=== PATIENT | male | born 1965 | race Caucasian/White ===

== ENCOUNTER 2017-01-23 18:14 | Inpatient (IN) | payer OTHER ==
[2017-01-23] MEDS ORDERED: ONDANSETRON 4 MG/2 ML VIAL IVP PRN (21:04)
[2017-01-23] MEDS ORDERED: ONDANSETRON DISINTEGRATING 4 MG TAB PO PRN (21:04)
[2017-01-23] MEDS: ENOXAPARIN 100 MG/ML SYR SC SCH (21:27)
[2017-01-23] MEDS ORDERED: KETOROLAC 30 MG/1 ML SDV IVP ONE (21:30)
[2017-01-23 21:43] LABS: % IMMATURE GRANULYOCYTES 0.5 % (0.0-1.1); ABSOLUTE IMMATURE GRANULOCYTES 0.07 10^3/uL (0.00-0.10); ADD DIFF? NO; ADD MORPH? NO; ADD SCAN? NO; ATYPICAL LYMPHOCYTE FLAG 0 (0-99); FRAGMENT RBC FLAG 0 (0-99); HEMATOCRIT 36.5 % (40.0-51.0); HEMOGLOBIN 12.5 g/dL (13.7-17.5); LEFT SHIFT FLG 20 (0-99); LIPEMIA HEMOLYSIS FLAG 90 (0-99); MEAN CELL HEMOGLOBIN 29.6 pg (27.9-34.1); MEAN CELL HEMOGLOBIN CONCENTR. 34.2 g/dL (32.4-36.7); MEAN CELL VOLUME 86.3 fL (81.5-99.8); MEAN PLATELET VOLUME 8.6 fL (8.7-11.7); PLATELET CLUMPS FLAG 0 (0-99); PLATELET COUNT 256 10^3/uL (150-400); RED BLOOD CELL COUNT 4.23 10^6/uL (4.40-6.38); RED CELL DISTRIBUTION WIDTH 13.1 % (11.5-15.2)
[2017-01-23 21:48] LABS: INR 1.22 (0.83-1.16); PROTIME(PATIENT) 15.4 SEC (12.0-15.0)
[2017-01-23 21:49] LABS: APTT 32.4 SEC (23.0-38.0)
[2017-01-23 21:59] LABS: ALANINE AMINOTRANSFERASE 68 IU/L (21-72); ALBUMIN 3.7 g/dL (3.5-5.0); ALKALINE PHOSPHATASE 78 IU/L (38-126); ANION GAP 11 mEq/L (8-16); ASPARTATE AMINOTRANSFERASE 44 IU/L (17-59); BILIRUBIN,TOTAL 0.6 mg/dL (0.1-1.4); CALCIUM 8.4 mg/dL (8.5-10.4); CARBON DIOXIDE 24 mEq/l (22-31); CHLORIDE 104 mEq/L (97-110); GLOMERULAR FILTRATION RATE > 60; GLUCOSE 100 mg/dL (70-100); POTASSIUM 3.8 mEq/L (3.5-5.2); SODIUM 139 mEq/L (134-144); TOTAL PROTEIN 6.6 g/dL (6.3-8.2)
--- NOTE | 2017-01-23 22:02 | GHP ---
[f rep st] HISTORY AND PHYSICAL DATE OF ADMISSION: 01/23/2017 CHIEF COMPLAINT: Pulmonary embolism. HISTORY OF PRESENT ILLNESS: A 51-year-old male, who was transferred from [facility]. About 10 days ago, he developed upper respiratory tract infection. About 4 days ago, he developed pleuritic-type chest pain. He was diagnosed with possible pneumonia a few days ago and started on antibiotics. T he pain continued. He had continued chest pain in the left side and then moved to the right side wh ich is pleuritic and quite severe and sharp. He presented to the emergency department at [facility] today, and the CT scan showed pulmonary embolism. He is not having any particular shortness of anahi ath. He did state that he had some left leg pain a few days ago. He has never had blood clots befo re. No recent bed rest or travel. No family history of blood clots. REVIEW OF SYSTEMS: A 10-point review of systems was obtained and was negative. PAST MEDICAL HISTORY: 1. 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 2. Aortic valve replacement with bovine valve. His project engineering director is Dr. Bueno. 3. 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 4. Hypothyroidism. MEDICATIONS: Include aspirin and levothyroxine. SOCIAL HISTORY: No smoking or alcohol. 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 FAMILY HISTORY: No history of blood clots. PHYSICAL EXAM: VITAL SIGNS: Afebrile, blood pressure is 124/65, heart rate 78, oxygen saturation 9 4% on 3 L. GENERAL: Patient is well developed, though in some distress secondary to pleuritic pain . HEENT: Nonicteric sclerae. Extraocular movements intact. Moist mucous membranes. NECK: Suppl e. No thyromegaly. LUNGS: Good effort. Clear to auscultation bilaterally. CARDIOVASCULAR: Regu lar rate and rhythm. There is a 2/6 systolic murmur heard best at the right upper sternal border. ABDOMEN: Positive bowel sounds. Soft, nontender, nondistended. No hepatosplenomegaly. EXTREMITIE S: No clubbing, cyanosis, or edema. SKIN: Without rash, warm and intact. NEURO: Alert and orien razia x3. Moving all 4 extremities equally. PSYCH: Normal mood and affect. LABS: The hospital labs are pending, but labs today showed a white count of 11. Creatinine 0.9. C T scan results showed multiple pulmonary emboli in the right middle lobe and right lower, and left l ower lobes. There was a very small right pleural effusion as well. ASSESSMENT: This is a 51-year-old male presenting with acute pulmonary embolism. PLAN: 1. Pulmonary embolism. The patient was given a dose of Lovenox in the morning. We will continue L ovenox here. We will do at least a few days of this, and then decide if he could be transitioned ov er to the newer oral anticoagulants versus Coumadin. He is having significant amounts of pleuritic chest pain currently. It is a little bit unusual that it comes in waves and rather than be continuo us, but is definitely pleuritic and quite sharp, and consistent with pleurisy from a pulmonary embol ism. We will give a dose of Toradol now, and then give small doses of Toradol as needed along with narcotics. We will also check lower extremity Doppler. The patient does have very mild hypoxia. N o hypotension nor tachycardia. 2. Hypothyroidism, due to tumor removal. Continue levothyroxine. 3. History of a bovine aortic valve replacement. 4. Admission: Patient will be admitted under full admission status. Case discussed with physician s at [facility]. Records from [facility] were reviewed and summarized in the HPI. /[id number]/MODL
[2017-01-23 22:10] LABS: TROPONIN I < 0.012 ng/mL (0-0.034)
[2017-01-23] MEDS: oxyCODONE IR 5 MG TAB PO PRN (22:12)
[2017-01-23] MEDS: ACETAMINOPHEN 325 MG TAB PO PRN (22:13)
--- NOTE | 2017-01-23 22:30 | CPEKG ---
Heart Rate: 68 RR Interval: 882 P-R Interval: 164 QRSD Interval: 106 QT Interval: 412 QTC Interval: 439 P [employer]: 30 QRS [employer]: -3 T Wave [employer]: 58 EKG Severity - ABNORMAL ECG - EKG Impression: SINUS RHYTHM Electronically Signed By: Michael Cisse 24-Jan-2017 06:52:03
[2017-01-24] MEDS: HYDROmorphONE/DILAUDID 1 MG/ML SYR IVP PRN ×6 (01:10→19:31)
[2017-01-24] MEDS: ACETAMINOPHEN 325 MG TAB PO PRN ×2 (02:03→06:06)
[2017-01-24] MEDS: oxyCODONE IR 5 MG TAB PO PRN ×5 (02:03→22:13)
[2017-01-24] MEDS: KETOROLAC 30 MG/1 ML SDV IVP PRN ×4 (04:47→22:13)
[2017-01-24] MEDS: ENOXAPARIN 100 MG/ML SYR SC SCH ×2 (08:25→22:12)
[2017-01-24] MEDS: LEVOTHYROXINE 50 MCG TAB PO SCH (08:53)
[2017-01-24] MEDS: ASPIRIN EC 81 MG TAB PO SCH (08:53)
[2017-01-24] MEDS: MULTIVITAMINS 1 EACH TAB PO SCH (08:53)
[2017-01-24] MEDS: LEVOTHYROXINE 200 MCG TAB PO SCH (08:53)
[2017-01-24] MEDS ORDERED: NALOXONE HCL 0.4 MG/ML INJ IVP PRN (12:09)
--- NOTE | 2017-01-24 12:55 | GCON ---
[f rep st] CONSULTATION PULMONARY CRITICAL CARE CONSULTATION DATE OF CONSULTATION: 01/24/2017 REASON FOR CONSULTATION: Pulmonary embolism, pleurisy. HISTORY OF PRESENT ILLNESS: Patient is a 51-year-old gentleman from [place]. He was transferred to [facility] yesterday with acute pulmonary embolic disease and associated pleuris y. His recent history is remarkable for an apparent upper respiratory tract infection approximately 10 days ago. He had chest pain with deep inspiration at that time. Apparently there were concerns regarding a left lower lobe pneumonia, and the patient was treated with Zithromax; however, symptom s did not improve. He returned to the [facility] yesterday. D-dimer was elevated. CT angiogram showed evidence of bilateral moderate volume pulmonary embolic disease. He was not hyp otensive, not significantly hypoxemic nor short of breath. His main complaint has been that of ches t pain. He was transferred to [facility]. He has been placed on full-dose Lovenox and pain medications. He continues to have right anterior chest pain, especially with certain positions and breathing. The pain tends to wax and wane in somewhat of a periodic fashion. He is on 2 L of oxyge n. Blood pressures are normal. He has not yet been started on oral anticoagulation. PAST MEDICAL HISTORY: Remarkable for a history of aortic valve replacement and aortic aneurysm rese ction in 2014. There is a history of acromegaly with trans-sphenoidal resection in 2016, a Hurthle cell thyroid adenoma previously resected, hypothyroidism on replacement, appendectomy, shoulder surg gladis, and vasectomy. MEDICATIONS: On admission prior to his recent presentations included only levothyroxine and aspirin . He has also been on a cough suppressant. SOCIAL HISTORY: The patient is , works in [place] in their housing [employer]. 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 He does not work at a computer for prolonged periods of time. There is no history of recent tr jessica, lower extremity injury, sedentary lifestyle, etc. He is a never smoker. He drinks alcohol in frequently. He is . FAMILY HISTORY: Negative for thromboembolic disease by report. Other problems include rheumatoid a rthritis and Karin syndrome, hyperlipidemia, hypertension. REVIEW OF SYSTEMS: Unremarkable for coronary artery disease, underlying lung disease, asthma, previ ous thromboembolic disease, kidney disease, etc. He has had no lower extremity or upper extremity e daly or swelling. He may have had some left calf tightness yesterday? Ten point review of systemsi s otherwise negative. PHYSICAL EXAMINATION: GENERAL: Reveals a pleasant gentleman who is resting comfortably in bed at t imes, has pleuritic pain on the right side, and clutches his chest intermittently at times. VITAL S IGNS: Blood pressure is 125/87, heart rate 75 with sinus rhythm on the monitor. Respiratory rate i s approximately 18. On 2 L, saturations are 99% to 100%. He is afebrile. HEENT: Unremarkable for lymphadenopathy or thyromegaly. There is no obvious jugular venous distention. PULMONARY: The ch est reveals an obvious rub on the right side. Excursions are limited secondary to his pain. He has some rales at the bases, left greater than right with a possible soft rub at the posterior left bas e which I cannot exclude. HEART: Regular in rate and rhythm. There is a soft systolic murmur. Th e aortic valve sounds fine. There are no gallops. P2 does not appear to be elevated. ABDOMEN: So ft, nontender. Bowel sounds present. EXTREMITIES: Without edema or cords. NEUROLOGIC: Intact. DATABASE: CT scan of the chest done in [place] shows bilateral pulmonary embolic disease with so me lobar defects in the right middle lobe, right lower lobe with some segmental defects in other lob es. There is no saddle embolus, no central pulmonary embolic lesions. Hypercoagulability panel reportedly was drawn in [place], but only protein C and S activities are listed. Laboratory here includes a white blood cell count of 14,000 on admission, hematocrit 36, platelets o f 256,000. PT was 15 with an INR 1.22 on admission, PTT 32. Chemistries are all within normal limi ts as is troponin. Bilateral lower extremity venous Doppler ultrasound done at [facility] negative for evidence of deep venous thrombosis. ASSESSMENT: 1. Pulmonary embolism. The patient has moderate volume pulmonary embolic disease not associated wi th hypotension or significant hypoxemia. He is being treated with Lovenox. Coumadin will be initia razia. He has been on Coumadin in the past associated with his valvular heart surgery apparently for a short period of time. Lower extremity venous Doppler ultrasound done here was negative for an obv ious source. Presumably, however, his clot came from a lower extremity thrombosis which has broken off entirely? 2. Pleurisy. Patient has significant right-sided pleurisy associated with an obvious pleural rub. This is waxing and waning but is quite uncomfortable and distressing to both the patient and his wi fe. He is on Dilaudid and Toradol at this point in time. DRYWALL FINISHING FOREMAN may be useful. There may be a compon ent of chest wall spasm. To this end, if present, Valium could be of benefit. 3. History of aortic valve replacement and aortic aneurysm repair. No issues are identified. 4. History of other past medical problems as outlined in HPI. PLAN AND RECOMMENDATIONS: The patient will be continued on full dose Lovenox. Coumadin will be add ed to his regimen, 7.5 mg given today. PT and INR will be followed. Dilaudid DRYWALL FINISHING FOREMAN will be added to his pain control regimen. P.r.n. Valium will to be tried for possible spasm. Further hypercoagulab ility values such as a factor V Leiden can be drawn. All of the above was discussed at length with the patient and his . Pathophysiology was discuss ed, risk factors for blood clots, anticipated time course of hospitalization, expected time course o f chest pain, hypercoagulability issues, mechanisms of chest pain in pulmonary embolic disease, pleu risy, etc. The patient and his are unhappy with the care at [facility] and are requesting transfer to the [facility]. The patient contact center representative will discuss issues with the patient and his and transfer arranged per their request if possible. /[id number]/MODL
[2017-01-24] MEDS: HYDROmorphONE/DILAUDID 6 MG/30 ML PCA IV PRN (14:03)
[2017-01-24] MEDS: DIAZEPAM 5 MG TAB PO PRN ×3 (15:22→22:14)
[2017-01-24] MEDS ORDERED: WARFARIN SODIUM 7.5 MG TAB PO ONE (16:00)
--- NOTE | 2017-01-24 16:11 | HOSPPROG ---
Hospitalist Progress Note Assessment/Plan: 51 yo M from [place] seen for chest pain and found to have acute bilateral PE # acute bilateral PE: moderate volume without any hemodynamic compromise but continued severe pain. No DVT on US. Has associated small right pleural effusion and likely associated infarct. Will get echo in the am and a repeat trop. ECG without ischemic changes or e/o right heart strain. Monitoring on tele. Treating with lovenox and coumadin. # chest pain: pain is severe and comes in waves that he describes as similar to contractions or spasms. Not well controlled on current medications so have added dilaudid display manager as well as valium prn. Do not suspect a secondary process causing his pain and reviewed that with him at length, but will add ESR and trop. # acute hypoxic respiratory failure: requiring 3L to maintain o2 sats in the mid to high 90s, will continue to titrate off as we are able. As above, will get cxr in am. # vhd: s/p aortic valve replacement, followed by [facility], echo in am # aortic aneurysm: s/p surgical repair, no issues noted on CTA performed at [facility] as above # jennifer: s/p septoplasty/inferior turbinate reduction # acromegaly: s/p transsphenoidal resection of pituitary adenoma # hypothyroid: continue lt4 # dispo: IP status, high risk requiring IV opiates Patient new to my care. Old records reviewed and summarized as above. Care plan reviewed with Dr. Borrero and multidisciplinary care team. Further hx obtained from and family present at bedside. Subjective: no significant overnight events, patient notes continued severe pain that comes in waves and not only associated with deep breath but at times positional, no n/v, eating well, not sob Objective: Vital Signs Temp Pulse Resp BP Pulse Ox 37.0 C 75 16 133/72 H 92 01/24/17 08:00 01/24/17 12:00 01/24/17 12:00 01/24/17 12:00 01/24/17 12:00 Laboratory Results 01/23/17 21:15 01/23/17 21:15 01/23/17 01/24/17 01/25/17 05:59 05:59 05:59 Intake Total 350 Balance 350 PT 15.4 SEC (12.0-15.0) H 01/23/17 21:15 INR 1.22 (0.83-1.16) H 01/23/17 21:15 awake alert moderate distress anicteric op clear rrr no mrg cta b, dec bs at bases soft nt nd no cce warm dry well perfused oriented appropriate - Time Spent With Patient Time Spent with Patient: greater than 35 minutes Time Spent with Patient: Greater than 35 minutes spent on this patients care, greater than 50% of time spent counseling, educating, and coordinating care regarding the above mentioned plan. ICD10 Worksheet Patient Problems: Problems Problem Status Onset Sleep apnea Acute
[2017-01-24 16:26] LABS: HEMATOCRIT 39.3 % (40.0-51.0)
[2017-01-24] MEDS ORDERED: WARFARIN SODIUM 5 MG TAB PO ONE (16:30)
[2017-01-25] MEDS ORDERED: LEVOTHYROXINE 200 MCG TAB PO SCH (05:00)
[2017-01-25] MEDS ORDERED: LEVOTHYROXINE 50 MCG TAB PO SCH (05:00)
[2017-01-25] MEDS: KETOROLAC 30 MG/1 ML SDV IVP PRN ×3 (05:05→20:28)
[2017-01-25] MEDS: LEVOTHYROXINE 200 MCG TAB PO SCH (05:05)
[2017-01-25] MEDS: LEVOTHYROXINE 50 MCG TAB PO SCH (05:05)
[2017-01-25] MEDS: DIAZEPAM 5 MG TAB PO PRN ×3 (05:06→21:54)
[2017-01-25] MEDS: oxyCODONE IR 5 MG TAB PO PRN ×2 (05:06→14:01)
[2017-01-25 05:35] LABS: % IMMATURE GRANULYOCYTES 1.6 % (0.0-1.1); ABSOLUTE IMMATURE GRANULOCYTES 0.16 10^3/uL (0.00-0.10); ADD DIFF? NO; ADD MORPH? NO; ADD SCAN? NO; ATYPICAL LYMPHOCYTE FLAG 40 (0-99); FRAGMENT RBC FLAG 0 (0-99); HEMATOCRIT 35.4 % (40.0-51.0); HEMOGLOBIN 11.6 g/dL (13.7-17.5); LEFT SHIFT FLG 10 (0-99); LIPEMIA HEMOLYSIS FLAG 80 (0-99); MEAN CELL HEMOGLOBIN 29.4 pg (27.9-34.1); MEAN CELL HEMOGLOBIN CONCENTR. 32.8 g/dL (32.4-36.7); MEAN CELL VOLUME 89.8 fL (81.5-99.8); MEAN PLATELET VOLUME 8.7 fL (8.7-11.7); PLATELET CLUMPS FLAG 0 (0-99); PLATELET COUNT 257 10^3/uL (150-400); RED BLOOD CELL COUNT 3.94 10^6/uL (4.40-6.38); RED CELL DISTRIBUTION WIDTH 13.2 % (11.5-15.2)
[2017-01-25 06:25] LABS: INR 1.16 (0.83-1.16); PROTIME(PATIENT) 14.8 SEC (12.0-15.0)
[2017-01-25] MEDS: HYDROmorphONE/DILAUDID 6 MG/30 ML PCA IV PRN (09:49)
[2017-01-25] MEDS: ASPIRIN EC 81 MG TAB PO SCH (09:53)
[2017-01-25] MEDS: MULTIVITAMINS 1 EACH TAB PO SCH (09:53)
[2017-01-25] MEDS: ENOXAPARIN 100 MG/ML SYR SC SCH ×2 (09:54→20:28)
--- NOTE | 2017-01-25 10:39 | ECHO ---
[id number] + + [address] : : [place] [address] : : [phone] + + Adult Echocardiographic Report + -------+ :Name: ALANIS MAYER Gallo Date: 01/25/2017 08:44 AM : : Hospital Admission Number: [id number] Locati on: 221: :: 1965 Gender: Male Height: 77 in : :Age: 51 yrs Race: WH Weight: 211 lb : :Reason For Study: PE/chest pain : : BSA: 2.3 meter s2 : :History: AVR with AO root graft : + -------+ MMode/2D Measurements \T\ Calculations IVSd: 0.84 cm LVIDd: 5.0 cm FS: 33.4 % Ao root diam: 3.5 cm LVPWd: 1.1 cm LVIDs: 3.3 cm EDV(Teich): 118.8 ml LA dimension: 4.3 cm ESV(Teich): 45.4 ml EF(Teich): 61.8 % Normal Measurement Values: + + :LVIDd (3.5-5.7cm) IVSd (0.6-1.1cm) LVPWd (0.6-1.1cm) Aortic Root (2.0-3.7cm)Left Atrium (1.5-4.0cm): :LV Vol(d) (76-115ml) LV Vol(s) (29-48ml) Ejec Fraction (50-65%)PV Camron (0.6- 1.2m/s) TV Camron (0.4-1.0m/s) : :MV E Camron (0.8-1.0m/s)MV A Camron (0.3-1.0m/s)LVOT Camron (0.7-1.2m/s) Asc Ao Camron ( 0.9-1.8m/s) : + + Doppler Measurements \T\ Calculations MV E max camron: 88.8 cm/sec Ao mean P.5 mmHg TR max camron: 262.0 cm/sec MV A max camron: 59.2 cm/sec Ao V2 mean: 145.6 cm/sec TR max P.5 mmHg MV E/A: 1.5 Ao V2 VTI: 41.5 cm RAP systole: 10.0 mmHg RVSP(TR): 37.5 mmHg Left Ventricle The left ventricle is normal in size. There is normal left ventricular wall thickness. EF estimate is 55-60%. The left ventricular ejection fraction is calculated at 61.8 %. There is Doppler evidence for diastolic dysfunction. Septal motion is consistent with post-operative state. Right Ventricle The right ventricle is normal in size and function. Atria The left atrium is mildly dilated. The right atrium is moderate to severely dilated. Mitral Valve The mitral valve is normal in structure and function. There is no evidence of mitral valve prolapse. There is mild mitral regurgitation. Tricuspid Valve Normal tricuspid valve. There is moderate tricuspid regurgitation. Right ventricular systolic pressure is normal. Aortic Valve There is a bioprosthetic aortic valve. AV max PG is 16mmHG. AV mean PG is 9mmHG. Pulmonic Valve The pulmonic valve is not well visualized. There is no pulmonic valvular regurgitation. Great Vessels The aortic root is normal size. Pericardium/Pleural There is no pericardial effusion. Conclusion A complete two-dimensional transthoracic echocardiogram was performed (2D, M-mode, Doppler and color flow Doppler). (1) Left ventricular systolic ejection fraction was normal (55-60%) - septal wall motion consistent with post operative state (2) No left ventricular hypertrophy (3) Diastolic dysfunction was noted (4) Normal right ventricular size and function (5) Modearte to severe right atrial dilation with mild left atrial dilation (6) Mild mitral regurgitation (7) Bioprosthetic aortic valve without appreciable insufficiency or sclerosis - mean gradient was estimated to be 9 mm Hg (8) Moderate tricuspid regurgitation - RVSP was 38 mm Hg (9) Poor visualization of the pulmonic valve (10) No comparison echocardiograms Final Reading Physician: Dany Vazquez signed on 01/25/2017 10:38 AM Ordering Physician: Claire Boyle Performed By: Toshia Choi, ENRIQUE
[2017-01-25] MEDS ORDERED: chlorproMAZINE HCL 25 MG TAB PO ONE (11:18)
--- NOTE | 2017-01-25 15:17 | HOSPPROG ---
Hospitalist Progress Note Assessment/Plan: 51 yo M from [place] seen for chest pain and found to have acute bilateral PE # acute bilateral PE: moderate volume without any hemodynamic compromise but continued severe pain. No DVT on US. Has associated small right pleural effusion and likely associated infarct. Echo w/o pericardial effusion or e/o right heart strain. Continue lovenox/warfarin. Pain control as next. # chest pain: pain is severe and continues to occur in a manner similar to spasm. Still poorly controlled despite dilaudid managed care analyst, toradol and valium. Query if due to diaphragmatic irritation and given similar spasm type phenomenon as hiccups will try a one time dose of thorazine as well. Nothing else on CT or echo to suggest another process contributing. Trops negative, no ischemic changes on ecg or echo. # acute hypoxic respiratory failure: requiring 3L to maintain o2 sats in the mid to high 90s, will continue to titrate off as we are able. # vhd: s/p aortic valve replacement, followed by [facility], echo stable # aortic aneurysm: s/p surgical repair, no issues noted on CTA performed at [facility] as above # jennifer: s/p septoplasty/inferior turbinate reduction # acromegaly: s/p transsphenoidal resection of pituitary adenoma # hypothyroid: continue lt4 # dispo: IP status, high risk requiring IV opiates Reviewed care with Dr. Bueno who will be available peripherally if needed. Subjective: no significant overnight events, patient continues to have severe pain that is only moderately controlled on current meds Objective: Vital Signs Temp Pulse Resp BP Pulse Ox 36.4 C 76 14 124/69 H 96 01/25/17 11:31 01/25/17 11:31 01/25/17 11:31 01/25/17 11:31 01/25/17 11:31 Laboratory Results 01/25/17 05:05 01/23/17 21:15 01/24/17 01/25/17 01/26/17 05:59 05:59 05:59 Intake Total 550 Balance 550 PT 14.8 SEC (12.0-15.0) 01/25/17 05:05 INR 1.16 (0.83-1.16) 01/25/17 05:05 awake alert moderate distress anicteric op clear rrr no mrg cta b, dec bs at bases soft nt nd no cce warm dry well perfused oriented appropriate - Time Spent With Patient Time Spent with Patient: greater than 35 minutes Time Spent with Patient: Greater than 35 minutes spent on this patients care, greater than 50% of time spent counseling, educating, and coordinating care regarding the above mentioned plan. ICD10 Worksheet Patient Problems: Problems Problem Status Onset Sleep apnea Acute
[2017-01-25] MEDS ORDERED: WARFARIN SODIUM 7.5 MG TAB PO ONE (16:00)
[2017-01-26] MEDS: KETOROLAC 30 MG/1 ML SDV IVP PRN ×2 (02:20→10:59)
[2017-01-26] MEDS: LEVOTHYROXINE 50 MCG TAB PO SCH (04:49)
[2017-01-26] MEDS: DIAZEPAM 5 MG TAB PO PRN ×3 (04:49→20:51)
[2017-01-26] MEDS: LEVOTHYROXINE 200 MCG TAB PO SCH (04:49)
[2017-01-26 05:52] LABS: INR 1.28 (0.83-1.16)
[2017-01-26] MEDS: LIDOCAINE 5% 1 EA PATCH TD SCH (09:31)
[2017-01-26] MEDS: ASPIRIN EC 81 MG TAB PO SCH (09:33)
[2017-01-26] MEDS: MULTIVITAMINS 1 EACH TAB PO SCH (09:33)
[2017-01-26] MEDS: ENOXAPARIN 100 MG/ML SYR SC SCH ×2 (09:34→20:50)
[2017-01-26] MEDS: HYDROmorphONE/DILAUDID 6 MG/30 ML PCA IV PRN (13:41)
[2017-01-26] MEDS ORDERED: MAGNESIUM HYDROXIDE 30 ML UDCUP PO PRN (14:20)
[2017-01-26] MEDS ORDERED: POLYETHYLENE GLYCOL 3350 17 GM PKT PO PRN (14:20)
[2017-01-26 14:50] LABS: INTERPRETATION See Comments
[2017-01-26] MEDS ORDERED: WARFARIN SODIUM 7.5 MG TAB PO ONE (16:00)
[2017-01-26] MEDS: HYDROmorphONE/DILAUDID 2 MG TAB PO PRN ×2 (16:43→20:51)
[2017-01-26] MEDS: NAPROXEN SODIUM 220 MG TAB PO PRN (16:43)
--- NOTE | 2017-01-26 16:52 | HOSPPROG ---
Hospitalist Progress Note Assessment/Plan: Assessment:51 yo M from [place] seen for chest pain and found to have acute bilateral PE Plan: # acute bilateral PE: Idiopathic, moderate volume without any hemodynamic compromise but continued severe pain secondary to pulmonary infarct - No DVT on US - Has associated small right pleural effusion and likely associated infarct - Echo w/o pericardial effusion or e/o right heart strain - Continue lovenox/warfarin - outpt INR will be via [facility] # acute pulmonary infarction: pain is severe and continues to occur in a manner similar to spasm, still poorly controlled despite dilaudid shipyard laborer, toradol and valium - attempt to cycle in PO equivalents of dilaudid, NSAID, gauge effect - cont to require CERTIFIED REGISTERED NURSE ANESTHETIST/IV toradol # acute hypoxic respiratory failure: evidenced by SpO2 88% w/ objective tachypnea (RR 22), symptomatic shortness of breath/labored breathing, requiring 4L to maintain o2 sats, 2/2 acute pulmonary embolism - cont pulse ox monitoring # vhd: s/p aortic valve replacement, followed by [facility], echo stable # aortic aneurysm: s/p surgical repair, no issues noted on CTA performed at [facility] as above # jennifer: s/p septoplasty/inferior turbinate reduction # acromegaly: s/p transsphenoidal resection of pituitary adenoma # hypothyroid: continue lt4 diet: regular ppx: high risk, on lovenox code: full dispo: ADD uncertain, requiring IV CERTIFIED REGISTERED NURSE ANESTHETIST for pain mgmt Subjective: counseled regarding pain management strategy including introducing oral pain medications, continuing IV pain medications, introducing bowel regimen , anticipated activity limitations Objective: Vital Signs Temp Pulse Resp BP Pulse Ox 35.7 C L 77 20 126/78 H 95 01/26/17 13:50 01/26/17 13:50 01/26/17 13:50 01/26/17 13:50 01/26/17 13:50 Laboratory Results 01/25/17 05:05 01/23/17 21:15 01/25/17 01/26/17 01/27/17 05:59 05:59 05:59 Intake Total 550 499 Balance 550 499 PT 16.0 SEC (12.0-15.0) H 01/26/17 04:42 INR 1.28 (0.83-1.16) H 01/26/17 04:42 - Time Spent With Patient Time Spent with Patient: greater than 35 minutes Time Spent with Patient: Greater than 35 minutes spent on this patients care, greater than 50% of time spent counseling, educating, and coordinating care regarding the above mentioned plan. - Physical Exam Constitutional: uncomfortable Cardiovascular: No tachycardia, No edema Respiratory: inspiratory crackles, other ( deep inspiration limited secondary to pain) Neurologic: AAOx3 Psychiatric: not encephalopathic, anxious, No agitated ICD10 Worksheet Patient Problems: Problems Problem Status Onset Sleep apnea Acute
[2017-01-26] MEDS: PATCH REMOVAL 1 EA PATCH TD SCH (20:54)
[2017-01-27] MEDS: NAPROXEN SODIUM 220 MG TAB PO PRN ×2 (01:56→18:12)
[2017-01-27] MEDS: HYDROmorphONE/DILAUDID 2 MG TAB PO PRN ×2 (01:56→16:14)
[2017-01-27] MEDS: KETOROLAC 30 MG/1 ML SDV IVP PRN ×3 (04:51→21:03)
[2017-01-27] MEDS: LEVOTHYROXINE 200 MCG TAB PO SCH (04:52)
[2017-01-27] MEDS: LEVOTHYROXINE 50 MCG TAB PO SCH (04:52)
[2017-01-27 05:18] LABS: HEMATOCRIT 34.5 % (40.0-51.0); HEMOGLOBIN 11.4 g/dL (13.7-17.5); MEAN CELL HEMOGLOBIN 28.9 pg (27.9-34.1); MEAN CELL VOLUME 87.3 fL (81.5-99.8); RED BLOOD CELL COUNT 3.95 10^6/uL (4.40-6.38); RED CELL DISTRIBUTION WIDTH 12.8 % (11.5-15.2)
[2017-01-27 05:24] LABS: INR 1.57 (0.83-1.16); PROTIME(PATIENT) 18.8 SEC (12.0-15.0)
[2017-01-27 05:32] LABS: ANION GAP 9 mEq/L (8-16); CALCIUM 8.3 mg/dL (8.5-10.4); CARBON DIOXIDE 26 mEq/l (22-31); CHLORIDE 105 mEq/L (97-110); CREATININE 0.7 mg/dL (0.7-1.3); GLOMERULAR FILTRATION RATE > 60; GLUCOSE 87 mg/dL (70-100); POTASSIUM 4.3 mEq/L (3.5-5.2); SODIUM 140 mEq/L (134-144)
[2017-01-27] MEDS: LIDOCAINE 5% 1 EA PATCH TD SCH (09:59)
[2017-01-27] MEDS: MULTIVITAMINS 1 EACH TAB PO SCH (10:00)
[2017-01-27] MEDS: ENOXAPARIN 100 MG/ML SYR SC SCH ×2 (10:00→20:58)
[2017-01-27] MEDS ORDERED: WARFARIN SODIUM 7.5 MG TAB PO ONE (16:00)
--- NOTE | 2017-01-27 16:18 | HOSPPROG ---
Hospitalist Progress Note Assessment/Plan: Assessment:51 yo M from [place] seen for chest pain and found to have acute bilateral PE Plan: # acute bilateral PE: idiopathic, moderate volume without any hemodynamic compromise but continued severe pain secondary to pulmonary infarct - No DVT on US - Has associated small right pleural effusion and likely associated infarct - Echo w/o pericardial effusion or e/o right heart strain - Continue lovenox/warfarin bridging - outpt INR will be via [facility] # acute pulmonary infarction: pain is severe and continues to occur in a manner similar to spasm (although I believe what the /patient are seeing is pectoralis muscle fasciculation 2/2 underlying pain/inflammation/nerve irritation), improvement in pain mgmt today w/ addition of oral Rx but becoming more somnolent - cont attempt to cycle in PO equivalents of dilaudid, NSAID, gauge effect - cont lidoderm patch - cont to require PRODUCT LEAD/IV toradol - add gabapentin 100mg 3xd as there is probably a neuropathic pain component underlying his neuromuscular jxn fasciculations - counseled extensively today regarding pain mgmt strategy, getting him on oral Rx, not perseverating on muscular fasciculations (as they are not causing pain, but are rather an indication of ongoing pain/inflam/etc), and the progressive improvement he will continue to experience - all questions by and patient seemed to be answered today # acute hypoxic respiratory failure: evidenced by SpO2 88% w/ objective tachypnea (RR 22), symptomatic shortness of breath/labored breathing, requiring 4L to maintain o2 sats, 2/2 acute pulmonary embolism - cont pulse ox monitoring - unclear whether he will require home o2 # vhd: s/p aortic valve replacement, followed by Dr. Bueno, echo stable # aortic aneurysm: s/p surgical repair, no issues noted on CTA performed at [facility] as above # jennifer: s/p septoplasty/inferior turbinate reduction # acromegaly: s/p transsphenoidal resection of pituitary adenoma # hypothyroid: continue lt4 diet: regular ppx: high risk, on lovenox code: full dispo: ADD uncertain, requiring IV PRODUCT LEAD for pain mgmt Subjective: Patient reports that his pain management has improved, he is attempting to utilize some of the oral pain medications, is experiencing more fatigued today, he has had a bowel movement Objective: Vital Signs Temp Pulse Resp BP Pulse Ox 37.7 C 76 30 H 159/62 H 94 01/27/17 16:00 01/27/17 16:00 01/27/17 16:00 01/27/17 16:00 01/27/17 16:00 Laboratory Results 01/27/17 04:42 01/27/17 04:42 01/26/17 01/27/17 01/28/17 05:59 05:59 05:59 Intake Total 499 150 Balance 499 150 PT 18.8 SEC (12.0-15.0) H 01/27/17 04:42 INR 1.57 (0.83-1.16) H 01/27/17 04:42 - Time Spent With Patient Time Spent with Patient: greater than 35 minutes Time Spent with Patient: Greater than 35 minutes spent on this patients care, greater than 50% of time spent counseling, educating, and coordinating care regarding the above mentioned plan. - Physical Exam Constitutional: no apparent distress, appears nourished, uncomfortable, No chronically ill appearing Respiratory: reduced air movement (Inspiration limited secondary to pain), inspiratory crackles (Bilateral bases and mid posterior 2nd), No expiratory wheeze, No bronchial breath sounds Neurologic: AAOx3 Psychiatric: interacting appropriately, not anxious, not encephalopathic, thought process linear ICD10 Worksheet Patient Problems: Problems Problem Status Onset Sleep apnea Acute
[2017-01-27] MEDS: ACETAMINOPHEN 325 MG TAB PO PRN (20:57)
[2017-01-27] MEDS: PATCH REMOVAL 1 EA PATCH TD SCH (21:00)
[2017-01-27] MEDS: DIAZEPAM 5 MG TAB PO PRN (21:02)
[2017-01-27] MEDS: GABAPENTIN 100 MG CAP PO SCH (21:03)
[2017-01-28] MEDS: HYDROmorphONE/DILAUDID 2 MG TAB PO PRN ×3 (02:04→19:51)
[2017-01-28] MEDS: NAPROXEN SODIUM 220 MG TAB PO PRN ×3 (02:04→19:51)
[2017-01-28 05:18] LABS: INR 2.03 (0.83-1.16); PROTIME(PATIENT) 23.1 SEC (12.0-15.0)
[2017-01-28] MEDS: LEVOTHYROXINE 50 MCG TAB PO SCH (06:11)
[2017-01-28] MEDS: LEVOTHYROXINE 200 MCG TAB PO SCH (06:13)
[2017-01-28] MEDS: DIAZEPAM 5 MG TAB PO PRN (06:23)
[2017-01-28] MEDS: ENOXAPARIN 100 MG/ML SYR SC SCH (09:10)
[2017-01-28] MEDS: GABAPENTIN 100 MG CAP PO SCH ×3 (09:11→19:51)
[2017-01-28] MEDS: ACETAMINOPHEN 325 MG TAB PO PRN ×2 (09:11→16:22)
[2017-01-28] MEDS: LIDOCAINE 5% 1 EA PATCH TD SCH (09:12)
[2017-01-28] MEDS: MULTIVITAMINS 1 EACH TAB PO SCH (09:12)
[2017-01-28] MEDS ORDERED: DIAZEPAM 5 MG TAB PO PRN (14:01)
--- NOTE | 2017-01-28 14:14 | HOSPPROG ---
Hospitalist Progress Note Assessment/Plan: Assessment:51 yo M from [place] seen for chest pain and found to have acute bilateral PE Plan: # acute bilateral PE: idiopathic, moderate volume without any hemodynamic compromise. No DVT on US - Has associated small right pleural effusion and likely associated infarct - Echo w/o pericardial effusion or e/o right heart strain - Continue lovenox/warfarin bridging, INR now therapeutic, has had 5 day overlap , will d/c lovenox tomorrow - outpt INR will be via [facility] - recommend outpt heme consult to discuss DOT of anticoagulation as this is an unprovoked PE. 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 Bueno, echo stable # aortic aneurysm: s/p surgical repair, no issues noted on CTA performed at [facility] as above # jennifer: s/p septoplasty/inferior turbinate reduction # acromegaly: s/p transsphenoidal resection of pituitary adenoma # hypothyroid: continue lt4 diet: regular ppx: high risk, on lovenox code: full dispo: likely tomorrow Subjective: PT is quite sedated, apathetic nature. Denies CP or SOB at rest. Still having some hemoptysis. No fevers/chills. He ambulated in the halls without O2, sats 86%. Objective: Vital Signs Temp Pulse Resp BP Pulse Ox 36.4 C 61 20 126/85 H 89 L 01/28/17 11:54 01/28/17 11:54 01/28/17 11:54 01/28/17 11:54 01/28/17 11:54 Laboratory Results 01/27/17 04:42 01/27/17 04:42 01/27/17 01/28/17 01/29/17 05:59 05:59 05:59 Intake Total 150 1605 Output Total 3 Balance 150 1602 PT 23.1 SEC (12.0-15.0) H 01/28/17 04:49 INR 2.03 (0.83-1.16) H 01/28/17 04:49 - Physical Exam Constitutional: no apparent distress Eyes: PERRL Ears, Nose, Mouth, Throat: moist mucous membranes Cardiovascular: regular rate and rhythym, systolic murmur Respiratory: no respiratory distress, other (dimished right base) Gastrointestinal: normoactive bowel sounds, soft, non-tender abdomen Skin: warm Musculoskeletal: full muscle strength Neurologic: AAOx3 Psychiatric: flat affect ICD10 Worksheet Patient Problems: Problems Problem Status Onset Sleep apnea Acute
[2017-01-28] MEDS ORDERED: WARFARIN SODIUM 5 MG TAB PO ONE (16:00)
[2017-01-28] MEDS: KETOROLAC 30 MG/1 ML SDV IVP PRN (19:51)
[2017-01-28] MEDS: PATCH REMOVAL 1 EA PATCH TD SCH (20:56)
[2017-01-28] MEDS ORDERED: ENOXAPARIN 100 MG/ML SYR SC ONE (21:00)
[2017-01-29 04:27] VITALS: TEMP 97.9
[2017-01-29 05:27] LABS: INR 2.29 (0.83-1.16); PROTIME(PATIENT) 25.4 SEC (12.0-15.0)
[2017-01-29] MEDS: LEVOTHYROXINE 200 MCG TAB PO SCH (05:50)
[2017-01-29] MEDS: LEVOTHYROXINE 50 MCG TAB PO SCH (05:50)
[2017-01-29 08:29] VITALS: BP 161/102; PULSE 65; RESP 16
[2017-01-29] MEDS: LIDOCAINE 5% 1 EA PATCH TD SCH (09:05)
[2017-01-29] MEDS: MULTIVITAMINS 1 EACH TAB PO SCH (09:05)
[2017-01-29] MEDS: GABAPENTIN 100 MG CAP PO SCH (09:05)
[2017-01-29] MEDS ORDERED: KETOROLAC 30 MG/1 ML SDV IVP ONE (10:20)
[2017-01-29 12:25] VITALS: O2SAT 87
[2017-01-29] MEDS ORDERED: WARFARIN SODIUM 7.5 MG TAB PO ONE (16:00)
--- NOTE | 2017-01-29 21:05 | GDS ---
[f rep st] DISCHARGE SUMMARY DISCHARGE DIAGNOSES: 1. Acute bilateral pulmonary emboli. 2. Acute pulmonary infarction. 3. Pleurisy pain. 4. Acute hypoxemic respiratory failure secondary to above requiring home oxygen at discharge. 5. Valvular heart disease status post aortic valve replacement. Echo is stable. 6. Aortic aneurysm status post surgical repair. Also remained stable. 7. Hypothyroidism. 8. Acromegaly. CONSULTANTS: Dr. Amadou Borrero, pulmonology. IMAGING STUDIES: 1. CT pulmonary angiogram performed at [place] revealed moderate volume bilateral pulmonary embo li. 2. Lower extremity venous Doppler study was negative for DVT. 3. Echocardiogram January 25 showed a normal left ventricular ejection fraction. Diastolic dysfunctio n was noted. Normal right ventricular size and function. Bioprosthetic aortic valve without apprec iable insufficiency or sclerosis. Right ventricular systolic pressure was 38. 4. Chest x-ray, January 25, 2017, reveals bibasilar atelectatic changes with possible evolving pulmonary infarct. HISTORY: For details please see dictated history and physical dated January 23. In brief, the patient is a 51-year-old male with multiple medical problems as noted above who presented to [facility] from [place] after being diagnosed with pulmonary embolism. He was admitted to our hospital for further management. HOSPITAL COURSE: Patient was admitted to the cardiac telemetry unit and monitored on telemetry. He remained hemodynamically stable with no evidence of hypotension or right ventricular strain. He wa s initially treated with Lovenox, and Coumadin was started. He received 5 days of overlap of both o f these agents, and at the time of discharge, his INR was therapeutic. He will have his INR followe d up by his [facility] primary care provider and is instructed to repeat his INR in 2 da ys. He had quite a bit of pain from pleurisy and required a Dilaudid [employer], frequent Toradol doses, a nd Valium for associated chest wall spasms. He was also started on gabapentin and a Lidoderm patch. Eventually his symptoms improved. He was weaned off oxygen; however, on the day of discharge, he was noted to be 87% on room air and thus home oxygen was prescribed especially given his elevation i n [place]. It seems this was an unprovoked event as the patient has no reported risk factors for PE and had a n egative Doppler study for DVT. Therefore, I recommended he have an outpatient hematology consult. I discussed indication for hypercoagulable workup as well as determine the recommended duration of t reatment. DISPOSITION: Patient was discharged home in stable condition with home oxygen. FOLLOWUP: 1. The patient needs a followup INR on Monday, January 31. An ongoing Coumadin management per his [facility] care provider, Dr. Cotto. 2. Follow up with Dr. Cotto, primary care physician. 3. The patient was referred to Dr. Zoie Jaffe, cadd technician, for an outpatient consultation to co nsider a hypercoagulable workup and duration of treatment on Coumadin. DISCHARGE MEDICATIONS: Please see [facility] for complete updated outpatient medication list. New me dications on discharge include: 1. Warfarin 5 mg on Monday and 7.5 mg all other days. He was given #30, no refills. 2. Dilaudid 2 mg p.o. q.4 hours p.r.n., #20, no refills. 3. Lidoderm 5% patch 1 daily, #7, no refills. Changed medications: His levothyroxine dose is decreased from 250 mcg to 200 mcg given TSH level of 0.289. He is instructed to follow up closely with his PCP for a repeat TSH and ongoing dose adjust ments of his levothyroxine. Aspirin is also discontinued in the setting of anticoagulation to reduc e bleeding risk. /[id number]/MODL
== END 2017-01-29 14:30 | disposition home or self-care (01) | DRG 175 ==
LOC: OBSVTOIN 20:10 → F2N 20:10 → F2W 01-24 15:34
PROVIDERS: ADMIT Internal Medicine; ATTEND Internal Medicine
DX: I26.99 Other pulmonary embolism without acute cor pulmonale (principal); J96.01 Acute respiratory failure with hypoxia; E03.9 Hypothyroidism, unspecified; Z95.4 Presence of other heart-valve replacement
CPT/HCPCS: 81332-90; 81479-90; J1170; J1650; J1885; J2405

== ENCOUNTER → 2017-02-11 | Outpatient (CLI) | payer OTHER ==
[~2017-02-11] MED LIST: GADOBUTROL 10 ML VIAL IVP ONE
== END ==
LOC: FIMAGING 13:53
DX: Z09 Encounter for follow-up examination after completed treatment for conditions other than malignant neoplasm (principal)
CPT/HCPCS: A9585

== ENCOUNTER → 2017-02-22 | Outpatient (CLI) | payer OTHER | LOC: BMCIMAGING 16:36 | PROVIDERS: ATTEND Internal Medicine | DX: R05 Cough (principal); Z95.4 Presence of other heart-valve replacement ==

== ENCOUNTER → 2017-05-05 | Outpatient (CLI) | payer OTHER | LOC: BMCIMAGING 08:33 | PROVIDERS: ATTEND Urology | PROC: 0VB07ZX Excision of Prostate, Via Natural or Artificial Opening, Diagnostic (ICD-10-PCS; principal; 2017-05-05) | DX: R97.20 Elevated prostate specific antigen [PSA] (principal) ==